=== PATIENT | male | born 1980 | race Two or more races ===

== ENCOUNTER 2024-10-29 09:25 | Inpatient (IN) | payer MEDICAID, OTHER ==
[~2024-10-29] VITALS: Ht 175.3 cm; Wt 164.3 kg
--- NOTE | 2024-10-29 10:00 | ED.PDOC ---
History of Present Illness HPI Comments 44-year-old male presents to the ER with prior medical history of hypertension and a chief complaint of high blood pressure. Patient reports on having no hypotension medication due from recently moving to [place] from [place] four months ago. Patient states on having dizziness with nausea on Tuesday, called EMS and went to [facility] where the patient had a blood pressure of 208/115 and was diagnosed with vertigo. At the hospital the patient was only in given meclizine for the vertigo, but no medications for the hypertension. Patient states on recently running out of his hypertension meds and taking his dad. Patient has an appointment next week to see his PCP. Family history of cancer. Patient came in for a refill of his medications. Denies chills, fever, N/V/D, SOB, CP. No other associated symptoms, modifiers, recent injuries or sick contacts present at this time. Chief Complaint: High Blood Pressure Time Seen by MD: 10:00 Reviewed Notes: Nurses Notes, Medications, Allergies Allergies: Coded Allergies: Acetaminophen (Verified Allergy, Unknown, 10/29/24) Oxycodone (Verified Allergy, Unknown, 10/29/24) Information Source: Patient Mode of Arrival: Ambulatory Severity: Moderate Timing: Days Duration: Since onset, Days Prehospital treatment: None Past Medical History PAST MEDICAL HISTORY: HTN Surgical History: Denies all surgeries Family History Family History: Reviewed,noncontributory to illness, Unknown Social History Smoker: Non-Smoker Alcohol: Denies ETOH Use Drugs: Denies Drug Use Lives In: Home Constitutional: denies: chills, diaphoresis, fatigue, fever, malaise, sweats, weakness, others EENTM: denies: blurred vision, double vision, ear bleeding, ear discharge, ear drainage, ear pain, ear ringing, eye pain, eye redness, hearing loss, mouth pain, mouth swelling, nasal discharge, nose bleeding, nose congestion, nose pain, photophobia, tearing, throat pain, throat swelling, voice changes, others Respiratory: denies: cough, hemoptysis, orthopnea, SOB at rest, shortness of breath, SOB with excertion, stridor, wheezing, others Cardiovascular: denies: chest pain, dizzy spells, diaphoresis, Dyspnea on exertion, edema, irregular heart beat, left arm pain, lightheadedness, palpitations, PND, syncope, others Gastrointestinal: reports: nausea; denies: abdomen distended, abdominal pain, blood streaked bowels, constipated, diarrhea, dysphagia, difficulty swallowing, hematemesis, melena, poor appetite, poor fluid intake, rectal bleeding, rectal pain, vomiting, others Genitourinary: denies: burning, dysuria, flank pain, frequency, hematuria, incontinence, penile discharge, penile sore, pain, testicle pain, testicle swelling, urgency, others Neurological: reports: dizziness; denies: fainting, headache, left sided num bness, left sided weakness, numbness, paresthesia, pre-existing deficit, right sided numbness, right sided weakness, seizure, speech problems, tingling, tremors, weakness, others Musculoskeletal: denies: back pain, gout, joint pain, joint swelling, muscle pain, muscle stiffness, neck pain, others Integumetry: denies: bruises, change in color, change in hair/nails, dryness, laceration, lesions, lumps, rash, wounds, others Allergic/Immunocompromised: denies: Difficulty Healing, Frequent Infections, Hives, Itching, others Hematologic/Lymphatic: denies: anemia, blood clots, easy bleeding, easy bruising, swollen glands, others Endocrine: denies: excessive hunger, excessive sweating, excessive thirst, excessive urination, flushing, intolerance to cold, intolerance to heat, unexplained weight gain, unexplained weight loss, others Psychiatric: denies: anxiety, bipolar disorder, depression, hopeless, panic disorder, schizophrenia, sleepless, suicidal, others All Other Systems: Reviewed and Negative Physical Exam General Appearance: No Apparent Distress, Normal HEENT: Normal ENT Inspection, Pharynx Normal, TMs Normal Neck: Full Range of Motion, Non-Tender, Normal, Normal Inspection Respiratory: Chest Non-Tender, Lungs Clear, No Accessory Muscle Use, No Respiratory Distress, Normal Breath Sounds Cardiovascular: No Edema, No JVD, No Murmur, No Gallop, Normal Peripheral Pulses, Regular Rate/Rhythm Breast Exam: Deferred Gastrointestinal: No Organomegaly, Non Tender, No Pulsatile Mass, Normal Bowel Sounds, Soft Genitalia: Deferred Pelvic: Deferred Rectal: Deferred Extremities: No calf tenderness, Normal capillary refill, Normal inspection, Normal range of motion, Non-tender, No pedal edema Musculoskeletal : Apperance: Normal Neurologic: Alert, ice cream freezer helper II-XII nml as Tested, No Motor Deficits, Normal Affect, Normal Mood, No Sensory Deficits Cerebellar Function: Normal Reflexes: Normal Skin: Dry, Normal Color, Warm Lymphatic: No Adenopathy Was a procedure done? Was a procedure done?: No Differential Dx Considerations may include: Hypertensive emergency, ACS, CVA X-Ray, Labs, Meds, VS Vital Signs Date Time Temp Pulse Resp B/P (MAP) Pulse Ox O2 Delivery O2 Flow Rate FiO2 10/29/24 09:28 98.3 79 19 179/99 99 98.3 Lab Test 10/29/24 10:58 10/29/24 09:57 Range/Units Troponin I High Sensitivity 5 5 </=54 ng/L White Blood Count 7.6 4.4-10.8 10^3/uL Red Blood Count 4.72 4.5-5.90 10^6/uL Hemoglobin 15.9 13.5-17.5 g/dL Hematocrit 46.1 41.0-53.0 % Mean Corpuscular Volume 97.7 80.0-100.0 fL Mean Corpuscular Hemoglobin 33.6 H 28.0-32.0 pg Mean Corpuscular Hemoglobin Concent 34.4 32.0-36.0 g/dL Red Cell Distribution Width 14.2 11.8-14.3 % Platelet Count 171 140-450 10^3/uL Mean Platelet Volume 8.0 6.9-10.8 fL Neutrophils (%) (Auto) 62.2 37.0-80.0 % Lymphocytes (%) (Auto) 26.2 10.0-50.0 % Monocytes (%) (Auto) 10.0 0.0-12.0 % Eosinophils (%) (Auto) 1.1 0.0-7.0 % Basophils (%) (Auto) 0.5 0.0-2.0 % Neutrophils # (Auto) 4.8 1.6-8.6 10 ^3/uL Lymphocytes # (Auto) 2.0 0.4-5.4 10 ^3/uL Monocytes # (Auto) 0.8 0-1.3 10 ^3/uL Eosinophils # (Auto) 0.1 0-0.8 10 ^3/uL Basophils # (Auto) 0 0-0.2 10 ^3/uL Nucleated Red Blood Cells 0.1 % Sodium Level 138 136-145 mmol/L Potassium Level 3.4 L 3.5-5.1 mmol/L Chloride Level 101 98-107 mmol/L Carbon Dioxide Level 26 20-31 mmol/L Anion Gap 11 5-15 Blood Urea Nitrogen 5 L 9-23 mg/dL Creatinine 0.85 0.700-1.30 mg/dL Glomerular Filtration Rate Calc 111 >90 mL/min BUN/Creatinine Ratio 5.9 L 10.0-20.0 Serum Glucose 142 H 74-106 mg/dL Calcium Level 9.2 8.7-10.4 mg/dL Time of 1ST Reevaluation: 10:30 Reevaluation 1ST: Unchanged Patient Education/Counseling: Diagnosis, Treatment, Prognosis Family Education/Counseling: No Family Present SEPSIS Sepsis Screen Date sepsis recognized/suspect: Oct 29, 2024 Time Sepsis recognized/suspect: 927 Recent Procedure: No On Antibiotic Therapy: No Respiratory Rate >20: No Heart Rate >90: No Temp<36 C (96.8 F) or >38.3 C: No SBP <90 or MAP <65 mmHG: No New Acute Mental Status Change: No Is the patient on CPAP, BIPAP,: No Physician Orders Chest Portable (10/29/24 09:44) Head Without Contrast (10/29/24 09:44) Electrocardigram (10/29/24 09:44) Troponin-I Hs (10/29/24 12:44) Electrocardigram (10/29/24 10:44) Electrocardigram (10/29/24 12:44) Hydralazine Injection (Apresoline Inject (10/29/24 12:15) Vital Signs Date Time Temp Pulse Resp B/P (MAP) Pulse Ox O2 Delivery O2 Flow Rate FiO2 10/29/24 09:28 98.3 79 19 179/99 99 98.3 Laboratory Tests Test 10/29/24 09:57 White Blood Count 7.6 10^3/uL (4.4-10.8) Departure 1 Departure Time of Disposition: 12:15 (Patient presented with hypertension and symptoms concerning for hypertensive emergency. Patient is receiving iv blood pressure medications requiring intensive monitoring. Data: 1. I ordered and reviewed the result of at least 3 labs including a CBC, BMP, and Urinalysis. 2. I independently interpreted the following tests: CT Brain: Which appears benign. EKG which is Normal Sinus RhythmRisk:This patient has a high risk of morbidity due to further diagnostic testing or treatment and may suffer from an acute cardiac disorder. Workup reveals hypertensive emergency and patient should be admitted for further workup. and possible expert consultation. ) Impression: Primary Impression: Hypertensive emergency Additional Impressions: Acute on chronic systolic heart failure Dizziness Disposition: ADMITTED INPATIENT Admit to: Tele Condition: Guarded Critical Care Note Critical Care Time?: Yes Critical care comment: Hypertensive emergency Authorized and Performed by: Nessa Carmichael MD Total critical care time: Approximately 38 minutes Due to a high probability of clinically significant, life threatening deterioration, the patient required my highest level of preparedness to intervene emergently and I personally spent this critical care time directly and personally managing the patient. This critical care time included obtaining a history; examining the patient; pulse oximetry; ordering and review of studies; arranging urgent treatment with development of a management plan; evaluation of patient's response to treatment; frequent reassessment; and, discussions with other providers. This critical care time was performed to assess and manage the high probability of imminent, life-threatening deterioration that could result in multi-organ failure. It was exclusive of separately billable procedures and treating other patients and teaching time. Please see my other sections and the rest of the note for further information on patient assessment and treatment. Stability Stability form required: No I personally scribed for NESSA CARMICHAEL MD ([email or web address]) on 10/29/24 at 10:00. Electronically submitted by Destin Simms ([email or web address]). NESSA CARMICHAEL MD Oct 29, 2024 10:00
[2024-10-29 10:18] LABS: Chloride 101 mmol/L (98-107); Sodium 138 mmol/L (136-145)
[2024-10-29 10:19] LABS: Anion Gap 11 (5-15); Carbon Dioxide 26 mmol/L (20-31)
[2024-10-29 10:20] LABS: Calcium 9.2 mg/dL (8.7-10.4); Hematocrit 46.1 % (41.0-53.0); Hemoglobin 15.9 g/dL (13.5-17.5); Mean Corpuscular Hemoglobin 33.6 pg (28.0-32.0); Mean Corpuscular Volume 97.7 fL (80.0-100.0); Nucleated Red Blood Cells % 0.1 %
--- NOTE | 2024-10-29 10:23 | DVH ---
EXAM: XY CHEST PORTABLE Indication: dizziness Technique: Single frontal view of the chest was obtained Comparison: None FINDINGS: Lines and Tubes: None Lungs: No focal consolidation. Pleura: No effusion. No pneumothorax. Cardiomediastinal contours: Unremarkable Bones: No acute osseous abnormality. IMPRESSION: No acute cardiopulmonary disease.
[2024-10-29 10:25] LABS: BUN/Creatinine Ratio 5.9 (10.0-20.0)
[2024-10-29 10:35] LABS: Blood Urea Nitrogen 5 mg/dL (9-23); Glucose 142 mg/dL (74-106); Potassium 3.4 mmol/L (3.5-5.1)
--- NOTE | 2024-10-29 10:37 | DVH ---
EXAM: CT HEAD WITHOUT CONTRAST INDICATION: dizziness TECHNIQUE: CT of the head without intravenous contrast. Radiation Dose Information: CT Dose: CTDI volume is 53.33 mGy. Dose-length product is 863.9 mGy*cm The dose indicators for CT are the volume Computed Tomography (CT) Dose Index (CTDIvol) and the Dose Length Product (DLP), and are measured in units of mGy and mGy-cm, respectively. These indicators are not patient dose, but values generated from the CT scanner acquisition factors. The report includes radiation exposure data for exposures received during this examination. COMPARISON: None FINDINGS: There is no evidence of acute intracranial hemorrhage, extra-axial collection, mass effect, midline s hift, herniation or hydrocephalus. The ventricles, sulci and cisterns are age appropriate. The garcia-white differentiation is intact. Patchy periventricular and subcortical white matter hypoattenuation is nonspecific but may be related to small vessel ischemic disease. The visualized paranasal sinuses and mastoid air cells are clear. The surrounding soft tissues and osseous structures are unremarkable. IMPRESSION: No acute intracranial abnormality.
[2024-10-29] MEDS: hydrALAZINE HCL 20 MG/ML VL IV ONE (14:29)
[2024-10-29] MEDS ORDERED: NITROGLYCERIN 0.4 MG SL TAB SL PRN (19:00)
[2024-10-29] MEDS ORDERED: ONDANSETRON HCL 4 MG/2 ML VIAL IV PRN (19:00)
[2024-10-29] MEDS ORDERED: MORPHINE SULFATE INJ 2 MG/ml SYRG IV PRN ×2 (19:00)
--- NOTE | 2024-10-29 19:33 | DVHHPRES ---
History of Present Illness Resident Creating Document: PETER FINN RESIDENT Reason for Visit: Hypertensive crisis (severe BP elevation) History of Present Illness 44-year-old male with known hypertension, recently moved from [place] ? [place], off prescribed antihypertensives ~1 month (insurance/PCP gap), presents with acute spinning vertigo beginning Tuesday while packing for a trip (sudden onset after exertion/heat), associated nausea and transient blurry vision; daughter noticed rapid horizontal eye movements. EMS took him to [facility] where BP ? 208/ 115; treated for vertigo with meclizine only, discharged without BP therapy. Since discharge, he took fathers meds (incl. metformin; also previously used lisinopril and a diuretic he recalls as torsemide). Symptoms partially improved with meclizine but persisted; home BP 195/110 this morning ? came to ED. ED data today: Hydralazine 20 mg IV x1; EKG sinus; CXR no acute disease; CT head negative; K 3.4 (low), BUN 5 (low), Cr 0.85 (GFR 111), glucose 142, troponin series negative; O? sat stable. He reports obstructive sleep apnea using CPAP nightly, intermittent RUQ/LUQ pressure, and headache improved after hydralazine; denies chest pain, focal weakness, syncope. No current tobacco (prior chewing tobacco; quit ~1 yr), no drugs, rare alcohol. Family hx: cancer. Past Medical History * Hypertension (dx ~2014 after gastric band removal; currently off meds ~1 month). * Obstructive sleep apnea on CPAP. * Prediabetes by history. Past Surgical History * Laparoscopic gastric band placement with subsequent slip/perforation removal (~2014) Family History * Cancer in family; (no known premature CV disease reported). Past Social History * Lives with family; recently moved from [place] to [place]; insurance ([employer]) now active. * Tobacco: prior chewing tobacco, quit ~1 year ago. * Alcohol: occasional. Drugs: denies. * No current PCP (appointment next week). Review of Systems Review of Systems * General: No fever/chills; exertional heat exposure before onset. * Neuro: No spinning vertigo currently , transient blurry vision; horizontal eye movements not observed; no focal weakness, no dysarthria, no syncope. * HEENT: No acute hearing loss or tinnitus reported; denies ear fullness. * CV: Denies chest pain/palpitations/orthopnea/PND. * Resp: No dyspnea or cough. * GI: (+) nausea during episodes; RUQ/LUQ pressure; denies vomiting, melena, hematemesis. * : Dark urine in sometimes no dysuria/hematuria reported. * Endo: Prior prediabetes; no polyuria/polydipsia. * MSK/Skin: No focal trauma/rash. * Psych: Anxiety during episodes. Allergies: Coded Allergies: Acetaminophen (Verified Allergy, Unknown, 10/29/24) Oxycodone (Verified Allergy, Unknown, 10/29/24) Medications Current Medications Medications Dose Ordered Sig/Antonina Route Start Time Stop Time Status Last Admin Dose Admin Ondansetron HCl 4 mg Q4HP PRN IV 10/29/24 19:00 UNV Morphine Sulfate 2 mg Q4HPRN PRN IV 10/29/24 19:00 UNV Enoxaparin Sodium 40 mg DAILY SC 10/29/24 19:00 UNV Nitroglycerin 0.4 mg Q5MINP PRN SL 10/29/24 19:00 UNV Morphine Sulfate 2 mg Q30M PRN IV 10/29/24 19:00 UNV Lisinopril 10 mg DAILY PO 10/29/24 19:00 UNV Meclizine HCl 12.5 mg Q60HPQO PO 10/29/24 22:00 UNV Nifedipine 30 mg DAILY PO 10/30/24 10:00 UNV Exam Vital Signs Vital Signs Date Time Temp Pulse Resp B/P (MAP) Pulse Ox O2 Delivery O2 Flow Rate FiO2 10/29/24 14:48 82 18 189/76 (113) 98 10/29/24 14:48 Room Air 10/29/24 09:28 98.3 98.3 Exam Initial Vitals : Hypertensive on arrival (prior readings up to 195/110 this AM), afebrile, HR normal, SpO? normal on room air. General: Alert, oriented, in no acute distress at rest; appears uncomfortable with head movement. HEENT: Pupils equal/reactive; TMs clear. Neuro: Speech fluent; CN IIXII grossly intact; strength 5/5; sensation intact; no dysmetria; Nystagmus reported by family; CV: Regular rate/rhythm, no murmurs/rubs; JVP not elevated; no edema. Resp: Clear to auscultation; no crackles/wheeze. Abdomen: Soft; mild RUQ/LUQ pressure subjectively; no rebound/guarding; no bruits appreciated; l Extremities: Warm, well perfused; pulses 2+. Skin: No rash. Labs/Xrays Labs Test 10/29/24 12:55 10/29/24 09:57 Range/Units Troponin I High Sensitivity 6 </=54 ng/L White Blood Count 7.6 4.4-10.8 10^3/uL Red Blood Count 4.72 4.5-5.90 10^6/uL Hemoglobin 15.9 13.5-17.5 g/dL Hematocrit 46.1 41.0-53.0 % Mean Corpuscular Volume 97.7 80.0-100.0 fL Mean Corpuscular Hemoglobin 33.6 H 28.0-32.0 pg Mean Corpuscular Hemoglobin Concent 34.4 32.0-36.0 g/dL Red Cell Distribution Width 14.2 11.8-14.3 % Platelet Count 171 140-450 10^3/uL Mean Platelet Volume 8.0 6.9-10.8 fL Neutrophils (%) (Auto) 62.2 37.0-80.0 % Lymphocytes (%) (Auto) 26.2 10.0-50.0 % Monocytes (%) (Auto) 10.0 0.0-12.0 % Eosinophils (%) (Auto) 1.1 0.0-7.0 % Basophils (%) (Auto) 0.5 0.0-2.0 % Neutrophils # (Auto) 4.8 1.6-8.6 10 ^3/uL Lymphocytes # (Auto) 2.0 0.4-5.4 10 ^3/uL Monocytes # (Auto) 0.8 0-1.3 10 ^3/uL Eosinophils # (Auto) 0.1 0-0.8 10 ^3/uL Basophils # (Auto) 0 0-0.2 10 ^3/uL Nucleated Red Blood Cells 0.1 % Sodium Level 138 136-145 mmol/L Potassium Level 3.4 L 3.5-5.1 mmol/L Chloride Level 101 98-107 mmol/L Carbon Dioxide Level 26 20-31 mmol/L Anion Gap 11 5-15 Blood Urea Nitrogen 5 L 9-23 mg/dL Creatinine 0.85 0.700-1.30 mg/dL Glomerular Filtration Rate Calc 111 >90 mL/min BUN/Creatinine Ratio 5.9 L 10.0-20.0 Serum Glucose 142 H 74-106 mg/dL Calcium Level 9.2 8.7-10.4 mg/dL SEPSIS Sepsis Screen Date sepsis recognized/suspect: Oct 29, 2024 Time Sepsis recognized/suspect: 927 Recent Procedure: No On Antibiotic Therapy: No Respiratory Rate >20: No Heart Rate >90: No Temp<36 C (96.8 F) or >38.3 C: No SBP <90 or MAP <65 mmHG: No New Acute Mental Status Change: No Is the patient on CPAP, BIPAP,: No Physician Orders Admit (10/29/24 18:54) Code Status (10/29/24 18:54) Oxygen Per Hour (10/29/24 18:54) Ondansetron Hcl (Zofran) (10/29/24 19:00) Complete Blood Count (10/30/24 04:00) Comprehensive Metabolic Panel (10/30/24 04:00) Cardiac Diet-2gna,Lofat,Lochol (10/30/24 Breakfast) Echo 2d Mode Cardiac Dop (10/29/24 18:54) Condition: Unstable (10/29/24 18:54) Morphine Sulfate Injection (10/29/24 19:00) Enoxaparin Sodium (Lovenox) (10/29/24 19:00) Nitroglycerin Sublingual (Ntrostat Subli (10/29/24 19:00) Morphine Sulfate Injection (10/29/24 19:00) Oxygen By Nasal Cannula (10/29/24 18:54) Stat Ekg For Chest Pain (10/29/24 18:54) Notify Md Of Changes From Base (10/29/24 18:54) Postal Service Window Clerk For 24 Hours (10/29/24 18:54) Emergency Dysrhythmia Protocol (10/29/24 18:54) Rhythm Strips Once Every Shift (10/29/24 18:54) Lisinopril Tablet (Zestril Tablet) (10/29/24 19:00) Potassium Effervesent Tab (Klor-Con/Ef) (10/29/24 19:00) Magnesium (10/29/24 18:54) Meclizine Tablet (Antivert Tablet) (10/29/24 22:00) Bipap/Cpap For Sleep Apnea (10/29/24 18:54) Nifedipine Er (Procardia Xl (Time-Releas (10/30/24 10:00) Vital Signs Date Time Temp Pulse Resp B/P (MAP) Pulse Ox O2 Delivery O2 Flow Rate FiO2 10/29/24 14:48 82 18 189/76 (113) 98 10/29/24 14:48 82 18 98 Room Air 10/29/24 14:29 189/76 Laboratory Tests Test 10/29/24 09:57 White Blood Count 7.6 10^3/uL (4.4-10.8) Medications Medications Dose Ordered Sig/Antonina Route Start Time Stop Time Status Last Admin Dose Admin Hydralazine HCl 20 mg ONCE ONCE IV 10/29/24 12:15 10/29/24 12:20 DC 10/29/24 14:29 20 MG Assessment/Plan Assessment/Plan Assessment Principal Diagnosis: 1. Hypertensive urgency severe BP elevation without acute end-organ damage to date. continue evaluation to exclude emergency.?2) Acute vestibular syndrome likely peripheral vestibulopathy (BPPV vs vestibular neuritis) rule out central causes (cerebellar stroke, vertebrobasilar ischemia, PRES).?3) Hypokalemia . Likely from dietary factors/diuretic history; check Mg.?4) Hyperglycemiar/o diabetes vs prediabetes ( pending A1c).?5) Obstructive sleep apnea on CPAP ?6) Medication nonadherence / access issue due to recent move/insurance transition; unsafe use of others prescriptions .?7) RUQ/LUQ abdominal pressure evaluate hepatobiliary vs gastric causes (suspected if fatty liver; TBD).?8) Morbid obesity (BMI 53.5). Treatment Plan 1) Cardiovascular Hypertensive Urgency ( * BP goals: Gradual reduction; avoid >25% MAP decrease in first 2448h. * Start oral regimen now (choose & titrate based on vitals/labs): * Nifedipine ER 30 mg PO daily . * Lisinopril 10 mg PO daily after K ?3.5 and stable renal function (monitor K/Cr 2448h). * Consider chlorthalidone 12.5 mg PO daily after K/Mg repletion and if BP remains uncontrolled. * Monitoring: Telemetry; BP q4h, strict I/Os, daily weights. ; UA for protein/hematuria. * 2) Neurologic Acute Vertigo (BPPV vs vestibular neuritis; r/o central) * Bedside HINTS * DixHallpike; if posterior canal BPPV ? Keisha maneuver at bedside. * If any central signs (direction-changing nystagmus, abnormal skew, severe gait ataxia, new deficits) or high clinical concern ? MRI brain (DWI) MRA head/neck and Neurology consult. * Symptomatic therapy: Meclizine 12.5 PO q8h PRN , ondansetron PRN; vestibular PT consult if persistent. * 3) Electrolytes Hypokalemia (E87.6, CC) * KCl 40 mEq PO now, recheck K/Mg in 46h; additional 2040 mEq PO as needed to target K 4.04.5 (for HTN/arrhythmia risk). * If Mg <1.8 ? MgSO? 2 g IV x1 (or PO Mg oxide 400 mg) and recheck. * 4) Glycemia Hyperglycemia / Prediabetes vs DM * Check HbA1c. * POCT glucose AC/HS while inpatient; use low-dose correctional insulin only if needed. 5) MELANI * Continue home CPAP nightly (order RT setup); caution with sedatives. * 6) RUQ/LUQ Pressure * Order CMP (LFTs) and lipase; repeat abdominal exam. * If abnormal labs or localized RUQ tenderness ? RUQ ultrasound hepatobiliary. * 7) Secondary HTN screen (if BP resistant after re-initiation): * Ensure med adherence first. If persistent HTN despite triple therapy consider plasma renin/aldosterone, renal duplex, TSH, medication/substance review (decongestants, NSAIDs, energy drinks). * 8) Safety / Prophylaxis / Support * DVT prophylaxis: Lovenox 40 SQ q8h (unless contraindicated). * GI prophylaxis: Not routine; start PPI only if GI risk factors emerge. * Falls: High fall risk (vertigo) ? bed alarm, assist with ambulation, PT eval. * Diet: Cardiac/low-sodium; fluids as tolerated. * Education: Dangers of using non-prescribed meds; home BP log; medication affordability/coverage. Case discussed in detail with the attending physician, including the clinical presentation, diagnostic workup, and comprehensive management plan. The patient was present for the discussion and demonstrated understanding of his condition and the proposed plan. Patient verbally consented to hospital admission and agreed to the outlined evaluation and treatment strategies, including imaging, labs, medication initiation, specialist consultations, and supportive care Plan discussed with: Patient My Orders Orders - PETER FINN RESIDENT Procedure Category Date Status Time Admit ADMIT 10/29/24 Transmitted 18:54 Code Status CODE 10/29/24 Transmitted 18:54 Oxygen Per Hour RT 10/29/24 Transmitted 18:54 Ondansetron Hcl PHA 10/29/24 Logged (Zofran) 19:00 Complete Blood Count LAB 10/30/24 Verified 04:00 Comprehensive LAB 10/30/24 Verified Metabolic Panel 04:00 Cardiac DIET 10/30/24 Transmitted Diet-2gna,Lofat,Lochol Breakfast Echo 2d Mode Cardiac US 10/29/24 Logged DOP 18:54 Condition: Unstable CELINA 10/29/24 In Process 18:54 Morphine Sulfate PHA 10/29/24 Logged Injection 19:00 Enoxaparin Sodium PHA 10/29/24 Logged (Lovenox) 19:00 Nitroglycerin PHA 10/29/24 Logged Sublingual (Ntrostat 19:00 Morphine Sulfate PHA 10/29/24 Logged Injection 19:00 Oxygen By Nasal RT 10/29/24 Transmitted Cannula 18:54 Stat Ekg For Chest [facility] 10/29/24 In Process Pain 18:54 Notify Md Of Changes [facility] 10/29/24 In Process From Base 18:54 Postal Service Window Clerk For [facility] 10/29/24 In Process 24 Hours 18:54 Emergency Dysrhythmia [facility] 10/29/24 In Process Protocol 18:54 Rhythm Strips Once [facility] 10/29/24 In Process Every Shift 18:54 Lisinopril Tablet PHA 10/29/24 Logged (Zestril Tablet) 19:00 Potassium Effervesent PHA 10/29/24 Logged Tab (Klor-Con/Ef) 19:00 Magnesium LAB 10/29/24 Logged 18:54 Meclizine Tablet PHA 10/29/24 Logged (Antivert Tablet) 22:00 Bipap/Cpap For Sleep RT 10/29/24 Logged Apnea 18:54 Nifedipine Er PHA 10/30/24 Logged (Procardia Xl 10:00 Date of Service: Oct 29, 2024 Billing Provider: OLIVE GREY MD Common Visit Codes: [id number] INP/OBS CARE (HIGH) PETER FINN RESIDENT Oct 29, 2024 19:33
[2024-10-29 20:15] LABS: Triglycerides 662 mg/dL (< 150)
[2024-10-29 20:16] VITALS: BP 189/76; PULSE 82; RESP 18; O2SAT 98
[2024-10-29 20:16] LABS: Cholesterol 268 mg/dL (< 200); HDL Cholesterol 43 mg/dL (40-59)
[2024-10-29 20:30] LABS: Lipase 31 U/L (12-53)
[2024-10-29] MEDS ORDERED: MECLIZINE HCL 25 MG TAB PO PRN (22:00)
[2024-10-30] MEDS: POTASSIUM EFFERVESENT TAB 25 MEQ PO ONE (01:10)
[2024-10-30] MEDS: ENOXAPARIN SOD 40 MG/0.4 ML SYRINGE SC SCH (01:10)
[2024-10-30] MEDS: LISINOPRIL 5 MG TAB PO SCH (01:10)
[2024-10-30 06:44] LABS: Alanine Aminotransferase 27 U/L (7-40); Albumin 4.7 g/dL (3.2-4.8); Alkaline Phosphatase 60 U/L (46-116); Calcium 9.8 mg/dL (8.7-10.4)
[2024-10-30 06:45] LABS: Anion Gap 13 (5-15); Bilirubin, Total 0.9 mg/dL (0.2-1.0); Carbon Dioxide 26 mmol/L (20-31)
[2024-10-30 06:49] LABS: BUN/Creatinine Ratio 6.0 (10.0-20.0); Blood Urea Nitrogen < 5 mg/dL (9-23); Chloride 96 mmol/L (98-107); Glucose 132 mg/dL (74-106); Potassium 3.3 mmol/L (3.5-5.1); Sodium 135 mmol/L (136-145); Total Protein 8.5 g/dL (5.7-8.2)
[2024-10-30 06:59] LABS: Hematocrit 51.1 % (41.0-53.0); Hemoglobin 17.6 g/dL (13.5-17.5); Mean Corpuscular Hemoglobin 33.5 pg (28.0-32.0); Mean Corpuscular Volume 97.1 fL (80.0-100.0); Nucleated Red Blood Cells % 0.4 %
[2024-10-30] MEDS: POTASSIUM CHL 20 Meq TABLET PO ONE (07:19)
[2024-10-30 07:37] VITALS: PULSE 83; RESP 18; O2SAT 98
[2024-10-30] MEDS: MAGNESIUM SULFATE 1GM/100ML 100 ML IV ONE (08:04)
[2024-10-30] MEDS ORDERED: METF500S3 PO (08:45)
[2024-10-30] MEDS ORDERED: FURO20TA3 PO (08:45)
[2024-10-30] MEDS ORDERED: LISI2.5T47 PO (08:45)
[2024-10-30 09:00] VITALS: BP 187/155; PULSE 99; RESP 20; TEMP 98.3; O2SAT 98
[2024-10-30 12:44] VITALS: BP 154/80; PULSE 86; RESP 18; TEMP 97.8; O2SAT 97
[2024-10-30] MEDS: ATORVASTATIN 20 MG TAB PO SCH (13:43)
--- NOTE | 2024-10-30 15:15 | DVHDSRES ---
Discharge Summary Date of Admission Resident Creating Document: PETER FINN VANESSA RESIDENT Oct 29, 2024 at 18:54 Date of Discharge: Oct 30, 2024 Admitting Diagnosis Hypertensive urgency Labs/Diagnostic Data: Laboratory Results Test 10/30/24 05:57 10/29/24 22:35 10/29/24 12:55 10/29/24 10:58 White Blood Count 8.7 10^3/uL (4.4-10.8) Red Blood Count 5.26 10^6/uL (4.5-5.90) Hemoglobin 17.6 g/dL (13.5-17.5) Hematocrit 51.1 % (41.0-53.0) Mean Corpuscular Volume 97.1 fL (80.0-100.0) Mean Corpuscular Hemoglobin 33.5 pg (28.0-32.0) Mean Corpuscular Hemoglobin Concent 34.5 g/dL (32.0-36.0) Red Cell Distribution Width 14.2 % (11.8-14.3) Platelet Count 180 10^3/uL (140-450) Mean Platelet Volume 8.2 fL (6.9-10.8) Neutrophils (%) (Auto) 59.6 % (37.0-80.0) Lymphocytes (%) (Auto) 29.1 % (10.0-50.0) Monocytes (%) (Auto) 10.1 % (0.0-12.0) Eosinophils (%) (Auto) 0.7 % (0.0-7.0) Basophils (%) (Auto) 0.5 % (0.0-2.0) Neutrophils # (Auto) 5.2 10 ^3/uL (1.6-8.6) Lymphocytes # (Auto) 2.5 10 ^3/uL (0.4-5.4) Monocytes # (Auto) 0.9 10 ^3/uL (0-1.3) Eosinophils # (Auto) 0.1 10 ^3/uL (0-0.8) Basophils # (Auto) 0 10 ^3/uL (0-0.2) Nucleated Red Blood Cells 0.4 % Sodium Level 135 mmol/L (136-145) Potassium Level 3.3 mmol/L (3.5-5.1) Chloride Level 96 mmol/L (98-107) Carbon Dioxide Level 26 mmol/L (20-31) Anion Gap 13 (5-15) Blood Urea Nitrogen < 5 mg/dL (9-23) Creatinine 0.83 mg/dL (0.700-1.30) Glomerular Filtration Rate Calc 111 mL/min (>90) BUN/Creatinine Ratio 6.0 (10.0-20.0) Serum Glucose 132 mg/dL (74-106) Calcium Level 9.8 mg/dL (8.7-10.4) Total Bilirubin 0.9 mg/dL (0.2-1.0) Aspartate Amino Transferase (AST) 34 U/L (13-40) Alanine Aminotransferase (ALT) 27 U/L (7-40) Alkaline Phosphatase 60 U/L (46-116) Total Protein 8.5 g/dL (5.7-8.2) Albumin 4.7 g/dL (3.2-4.8) Troponin I High Sensitivity 4 ng/L (</=54) Magnesium Level 1.7 mg/dL (1.6-2.6) Triglycerides Level 662 mg/dL (< 150) Cholesterol Level 268 mg/dL (< 200) LDL Cholesterol mg/dL (< 100) HDL Cholesterol 43 mg/dL (40-59) Lipase 31 U/L (12-53) Thyroid Stimulating Hormone (TSH) 4.46 uIU/mL (0.55-4.78) Test 10/29/24 09:57 Hemoglobin A1c 6.1 % A1C (<5.7) Other Laboratory Tests 10/30/24 05:57 Brief Hx & Hospital Course: 44-year-old male with known hypertension, recently moved from [facility], off prescribed antihypertensives ~1 month (insurance/PCP gap), presents with acute spinning vertigo beginning Tuesday while packing for a trip (sudden onset after exertion/heat), associated nausea and transient blurry vision; daughter noticed rapid horizontal eye movements. [place] [facility] [place] ? 208/115; treated for vertigo with meclizine only, discharged without BP therapy. Since discharge, he took fathers meds (incl. metformin; also previously used lisinopril and a diuretic he recalls as torsemide). Symptoms partially improved with meclizine but persisted; home BP 195/110 this morning ? came to ED. lab workup revealed troponin negative. No neurological deficits on clinical exam. CT head negative for acute intracranial abnormality. Echo 2D revealed LVEF 65%. Patient is a conservatively and symptoms resolved. Patient is being discharged home with lisinopril 10 mg p.o. daily, nifedipine ER 30 mg p.o. daily, atorvastatin to 40 mg p.o. daily, potassium chloride 10 mEq p.o. daily for 10 days. Patient was advised to follow up with the primary care physician in 1 week with BMP. Patient's meds were sent to the pharmacy electronically. Patient was hemodynamically stable on discharge. Operations or Procedures [place] [id number] Ph: [phone] DIAGNOSTIC IMAGING Diagnostic Imaging Report : [id number] Signed PATIENT: NICKY MCCONNELL ACCT: [id number] UNIT: [id number] : 1980 LOC: ER ROOM / BED: / AGE / SEX: 44 / M ADM STATUS: REG ER SERVICE 0944 ORDERING PHYSICIAN: NESSA GARZA MD PROCEDURE(s): HWOCT - HEAD WITHOUT CONTRAST REASON: dizziness ORDER NUMBER(s): [id number], ACCESSION NUMBER(s): [id number] EXAM: CT HEAD WITHOUT CONTRAST INDICATION: dizziness TECHNIQUE: CT of the head without intravenous contrast. Radiation Dose Information: CT Dose: CTDI volume is 53.33 mGy. Dose-length product is 863.9 mGy*cm The dose indicators for CT are the volume Computed Tomography (CT) Dose Index (CTDIvol) and the Dose Length Product (DLP), and are measured in units of mGy and mGy-cm, respectively. These indicators are not patient dose, but values generated from the CT scanner acquisition factors. The report includes radiation exposure data for exposures received during this examination. COMPARISON: None FINDINGS: There is no evidence of acute intracranial hemorrhage, extra-axial collection, mass effect, midline shift, herniation or hydrocephalus. The ventricles, sulci and cisterns are age appropriate. The garcia-white differentiation is intact. Patchy periventricular and subcortical white matter hypoattenuation is nonspecific but may be related to small vessel ischemic disease. The visualized paranasal sinuses and mastoid air cells are clear. The surrounding soft tissues and osseous structures are unremarkable. IMPRESSION: No acute intracranial abnormality. ATED BY: VARINDER GANN MD DICTATED DATE/TIME: 10/29/24 1035 SIGNED BY: VARINDER GANN MD SIGNED DATE/TIME: 10/29/24 1035 CC: [place] [id number] Ph: [phone] DIAGNOSTIC IMAGING Diagnostic Imaging Report : [id number] Signed PATIENT: NICKY MCCONNELL ACCT: [id number] UNIT: [id number] : 1980 LOC: ER ROOM / BED: / AGE / SEX: 44 / M ADM STATUS: REG ER SERVICE 0977 ORDERING PHYSICIAN: NESSA GARZA MD PROCEDURE(s): CXRP - CHEST PORTABLE REASON: dizziness ORDER NUMBER(s): [id number], ACCESSION NUMBER(s): [id number] EXAM: XY CHEST PORTABLE Indication: dizziness Technique: Single frontal view of the chest was obtained Comparison: None FINDINGS: Lines and Tubes: None Lungs: No focal consolidation. Pleura: No effusion. No pneumothorax. Cardiomediastinal contours: Unremarkable Bones: No acute osseous abnormality. IMPRESSION: No acute cardiopulmonary disease. ATED BY: DOMINGO MCCANN MD DICTATED DATE/TIME: 10/29/24 1020 SIGNED BY: DOMINGO MCCANN MD SIGNED DATE/TIME: 10/29/24 1020 CC: [place] [id number] Ph: [phone] DIAGNOSTIC IMAGING Diagnostic Imaging Report : [id number] Signed PATIENT: NICKY MCCONNELL ACCT: [id number] UNIT: [id number] : 1980 LOC: OVERFLOW ROOM / BED: 1023-ERT / A AGE / SEX: 44 / M ADM STATUS: ADM IN SERVICE 1853 ORDERING PHYSICIAN: PETER FINN PROCEDURE(s): ECIDC - ECHO 2D MODE CARDIAC DOP REASON: Evaluate for structural heart disease ORDER NUMBER(s): [id number], ACCESSION NUMBER(s): [id number] APPROVED REPORT EXAM: Two-dimensional and M-mode echocardiogram with Doppler and color Doppler. Blood Pressure: 182/112 mmHg INDICATION Evaluate for structural heart disease RISK FACTORS Obesity: Height: 5'9", Weight: 362 DIMENSIONS LVDd 4.5 (3.8-5.7cm) LA (2D) 5.0 (1.9-4.0cm) Aortic Root 3.6 (2.0- 3.7cm) LVDs 3.2 (2.5-4.0cm) LA (MM) (1.9-4.0cm) Aortic Cusp Exc 2.3 (1.5- 2.0cm) EF (%) 60.0 (55-70%) Rt. Atrium 4.5 (1.9-4.0cm) Asc. Aorta cm IVSd 1.4 (0.7-1.1cm) RV (D) (1.8-2.4cm) PWd 1.5 (0.7-1.1cm) Mitral Valve Mitral Mitral Stenosis E wave 0.80m/s MV Mean GR. mmHg A wave 0.84m/s MV Peak GR. mmHg E/A ratio 1.0 2D MVA cm2 DECEL Time 255ms PRESS 1/2 Time ms Aortic Valve Aortic Valve Aortic Stenosis V1 1.49m/s AO Mean GR. 6mmHg V2 1.64m/s AO Peak GR. 11mmHg LVOT Diameter 2.5 (1.8-2.4cm) Doppler FARHAT 4.46cm2 Pulmonic Valve V2 1.79m/s Other Information Quality : Limited Rhythm : Technically limited study due to body habitus. Conclusion LV EF IS 65% AND IS NORMAL SLIGHTLY DILATED LA AND RA NORMAL VALVES NO EFFUSION SIGNED BY: RC AQUINO MD SIGNED DATE/TIME: 10/30/24 0549 CC: Condition at Discharge: Stable Final Diagnosis/Problems List Hypertensive urgency Vertigo Hypokalemia replenished History of Prediabetes Obstructive sleep apnea Discharge Disposition: Home Discharge Instruct/Medications Diet: Consistent carbohydrate, Cardiac 2g Na,low cholest Activity: No Restrictions, As Tolerated Follow Up/Referral: Please follow up with the primary care physician in 1 week with a report of echo 2D Follow up with your PCP with a BMP Avoid dehydration Medications: Lisinopril 10 mg p.o. daily Nifedipine 30 mg p.o. daily Potassium 10 mEq p.o. daily Atorvastatin 40 MG P.O. Q.H.S. Resume home medication meclizine Scheduled Atorvastatin Calcium (Atorvastatin Calcium), 1 TAB PO DAILY Furosemide (Furosemide), Unknown Dose PO BIDD, (Reported) Lisinopril (Lisinopril), Unknown Dose PO DAILY, (Reported) Lisinopril (Lisinopril), 10 MG PO DAILY Nifedipine (Nifedipine Er), 1 TAB PO DAILY Potassium Chloride (Potassium Chloride Cr), 1 TAB PO DAILY Miscellaneous Medications Metformin HCl (Metformin Hydrochloride), Unknown Dose PO, (Reported) Discharge Statement: "Patient was advised to return to the ER or call 911 if any headaches, dizziness, shortness of breath, chest pain, abdominal pain, bleeding, fevers, or worsening of medical condition. Patient was counseled about treatment plan, medications, possible side effects, patientverbalized understanding. All questions were answered to the best of my ability. This discharge took greater then 30 minutes in planning, reviewing documentation, counseling the patient, and discussing with other team members." ASSESSMENT ASSESSMENT Assessment MÓNICA ADAMS RESIDENT Oct 30, 2024 15:15
[2024-10-30] MEDS ORDERED: LISI10TA34 PO (15:18)
[2024-10-30] MEDS ORDERED: NIFE1TAB31 PO (15:18)
[2024-10-30] MEDS ORDERED: ATOR40TA52 PO (15:19)
[2024-10-30] MEDS ORDERED: POTA-36 PO (15:20)
[2024-10-30 15:28] VITALS: BP 150/60; PULSE 68; RESP 16; TEMP 98; O2SAT 98
[2024-10-30] MEDS: hydrALAZINE HCL 20 MG/ML VL IV STA (15:42)
[2024-10-30 16:24] VITALS: BP 146/56; PULSE 86
[2024-10-30 16:55] VITALS: BP 146/53; PULSE 89; RESP 18; TEMP 98; O2SAT 96
--- NOTE | 2024-10-30 17:30 | DVHSR ---
APPROVED REPORT EXAM: Two-dimensional and M-mode echocardiogram with Doppler and color Doppler. Blood Pressure: 182/112 mmHg INDICATION Evaluate for structural heart disease RISK FACTORS Obesity: Height: 5'9", Weight: 362 DIMENSIONS LVDd4.5 (3.8-5.7cm)LA (2D)5.0 (1.9-4.0cm)Aortic Root3.6 (2.0-3.7cm) LVDs3.2 (2.5-4.0cm)LA (MM) (1.9-4.0cm)Aortic Cusp Exc2.3 (1.5-2.0cm) EF (%) 60.0 (55-70%)Rt. Atrium4.5 (1.9-4.0cm)Asc. Aorta cm IVSd1.4 (0.7-1.1cm)RV (D) (1.8-2.4cm) PWd1.5 (0.7-1.1cm) Mitral Valve MitralMitral Stenosis E wave0.80m/sMV Mean GR.mmHg A wave0.84m/sMV Peak GR.mmHg E/A ratio1.02D MVAcm2 DECEL [id number] 1/2 Timems Aortic Valve Aortic ValveAortic Stenosis V11.49m/Bandar Mean GR.6mmHg V21.64m/Bandar Peak GR.11mmHg LVOT Diameter2.5 (1.8-2.4cm)Doppler AVA4.46cm2 Pulmonic Valve V21.79m/s Other Information Quality : LimitedRhythm : Technically limited study due to body habitus. Conclusion LV EF IS 65% AND IS NORMAL SLIGHTLY DILATED LA AND RA NORMAL VALVES NO EFFUSION
--- NOTE | 2024-11-02 07:59 | ECG ---
[facility] Test Date: 2024-10-30 Test Time: 14:08:47 Pat Name: NICKY MCCONNELL Department: Room: [address] [place] [address] Gender: M Media Planner: BRENT RICARDO : 1980 Requested By: MÓNICA ADAMS Order Number: [id number] Reading MD: Measurements Intervals [place] Rate: 101 P: 19 SD: 162 QRS: 62 QRSD: 84 T: 69 QT: 354 QTc: 459 Interpretive Statements Sinus tachycardia with premature atrial complexes Please click the below link to view image of tracing.
== END 2024-10-30 16:35 | disposition home or self-care (01) | DRG 199 ==
LOC: ER 09:25 → OVERFLOW 18:54
PROVIDERS: ADMIT Student in an Organized Health Care Education/Training Program; ATTEND Student in an Organized Health Care Education/Training Program
DX: I16.0 Hypertensive urgency (principal); E87.6 Hypokalemia; G47.33 Obstructive sleep apnea (adult) (pediatric); H81.10 Benign paroxysmal vertigo, unspecified ear; R73.03 Prediabetes; Z88.5 Allergy status to narcotic agent; Z80.9 Family history of malignant neoplasm, unspecified; Z87.891 Personal history of nicotine dependence
CPT/HCPCS: 36415; 70450; 71045; 80048; 80053; 80061; 83036; 83690; 83735; 84132; 84443; 84484; 85025; 93306; 96372; 96374; 99291; G0378